=== PATIENT | female | born 1985 | race Caucasian/White ===

== ENCOUNTER 2017-04-11 14:21 | Emergency (ER) | payer MEDICAID ==
[2017-04-11 14:36] VITALS: BP 125/74
--- NOTE | 2017-04-11 20:43 | UC ---
Rey Vides Thomas, scribed for Austin Boo MD on 04/11/17 at 1556 . General HPI - HPI Summary HPI Summary: The patient is a 32 year old female presenting to Urgent Care complaining of cough for the last week. She says it feels like someone is stepping on my chest. Patient additionally complains of right ear clogging, dysuria, urinary urgency, and urinary frequency. She also complains of tongue soreness with bumps on her tongue. Patient denies sore throat. - History of Current Complaint Chief Complaint: UCRespiratory Stated Complaint: COUGH, EAR ACHE ,AND BURNING URINATION Time Seen by Provider: 04/11/17 15:38 Hx Obtained From: Patient Hx Last Menstrual Period: 04/04/17 Onset/Duration: Lasting Weeks - 1, Still Present Timing: Constant Current Severity: Moderate Pain Location at: Tongue Aggravating: None Alleviating: None Associated Signs & Symptoms: Positive: Other - Cough, right ear clogging, dysuria, urinary urgency, urinary frequency, tongue soreness; NEGATIVE: sore throat - Allergy/Home Medications Allergies/Adverse Reactions: Allergies Allergy/AdvReac Type Severity Reaction Status Date / Time Pineapple Allergy Anaphylatic Verified 04/11/17 14:37 Shock Scopolamine Allergy Blurred Verified 04/11/17 14:37 Vision [place] Allergy Anaphylatic Verified 04/11/17 14:37 Shock Tree Nuts Allergy Anaphylatic Verified 04/11/17 14:37 Shock peppers Allergy Anaphylatic Uncoded 04/11/17 14:37 Shock Home Medications: Home Medications Diphenhydramine HCl [Benadryl Allergy] 04/11/17 [History] LevoCETirizine TAB (NF) [Xyzal TAB (NF)] 04/11/17 [History] PMH/Surg Hx/FS Hx/Imm Hx Previously Healthy: No - Gallbladder disease (with cholecystectomy), seasonal allergies - Surgical History Surgical History: None Surgery Procedure, Year, and Place: gallbladder- 03/28/17. tonsillectomy as a child - Family History Known Family History: Positive: Other - Patient denies relevant FHx - Social History Occupation: Employed Full-time Alcohol Use: None Substance Use Type: None Smoking Status (MU): Never Smoked Tobacco - Immunization History Most Recent Influenza Vaccination: unknown Review of Systems ENT: Other - Right ear clogging, tongue soreness Respiratory: Cough Genitourinary: Dysuria, Frequency, Urgency Is Patient Immunocompromised?: No All Other Systems Reviewed And Are Negative: Yes Physical Exam Triage Information Reviewed: Yes Vital Signs: Initial Vital Signs Temp 99.1 F 04/11/17 14:31 Pulse 98 04/11/17 14:31 Resp 14 04/11/17 14:31 BP 125/74 04/11/17 14:31 Pulse Ox 100 04/11/17 14:31 Vital Signs Reviewed: Yes - Additional Comments VITAL SIGNS: Reviewed. GENERAL: Patient is a well-developed and nourished female who is lying comfortable in the stretcher. Patient is not in any acute respiratory distress. HEAD AND FACE: Normocephalic EYES: PERRLA, EOMI x 2. EARS: Hearing grossly intact. The right TM is erythematous. MOUTH: Oropharynx within normal limits. She has canker sores. NECK: Supple, trachea is midline, no adenopathy, no JVD, no carotid bruit. CHEST: Symmetric, no tenderness at palpation LUNGS: Coarse breath sounds. CVS: Regular rate and rhythm, S1 and S2 present, no murmurs or gallops appreciated. ABDOMEN: Soft, non-tender. Bowel sounds are normal. No abdominal abnormal pulsations. EXTREMITIES: Full ROM in all major joints, no edema, no cyanosis or clubbing. NEURO: Alert and oriented x 3. No acute neurological deficits. Speech is normal and follows commands. SKIN: Dry and warm Course/Dx - Course Course Of Treatment: The patient is a 32 year old female presenting to Urgent Care complaining of cough for the last week. She says it feels like someone is stepping on my chest. Patient additionally complains of right ear clogging, dysuria, urinary urgency, and urinary frequency. She also complains of tongue soreness with bumps on her tongue. Patient denies sore throat. The right TM is erythematous. She has canker sores. She has coarse breath sounds. Urinalysis shows 1+ blood and 1+ leukocyte esterase. Urine culture was ordered. The patient is diagnosed with right otitis media and UTI. The patient will be discharged home and instructed to follow up with primary care. The patient is prescribed Xylocaine 2% viscous for mouth sores and Bactrim for UTI. - Differential Dx - Multi-Symptom Differential Diagnoses: Urinary Tract Infection, Other - URI, OM, Flu Provider Diagnoses: Right otitis media, UTI Discharge - Discharge Plan Condition: Stable Disposition: HOME Prescriptions: Lidocaine 2% VISCOUS* [Xylocaine 2% Viscous*] 15 ml SWISH SPIT Q4H PRN #1 btl PRN Reason: Pain Sulfamethox/Trimethoprim DS* [Bactrim DS 800/160 TAB*] 1 tab PO BID #20 tab Patient Education Materials: Urinary Tract Infection in Women (ED), Otitis Media (ED) Referrals: [facility] [Outside] - 3 Days Additional Instructions: Follow up with your primary care physician in 3 days. Return to urgent care for any new or worsening symptoms. The documentation as recorded by the Rey mcgrath Thomas accurately reflects the service I personally performed and the decisions made by Rajeev turner Walter, MD.
--- NOTE | 2017-04-15 07:51 | UC ---
- Progress Note Progress Note: NOTIFY PT THAT HER INFECTION IS RESISTANT TO BACTRIM STOP CURRENT ANTIBIOTIC E -RXED FEKEX 500MG BID X 7 DAYS Course/Dx - Course Course Of Treatment: The patient is a 32 year old female presenting to Urgent Care complaining of cough for the last week. She says it feels like someone is stepping on my chest. Patient additionally complains of right ear clogging, dysuria, urinary urgency, and urinary frequency. She also complains of tongue soreness with bumps on her tongue. Patient denies sore throat. The right TM is erythematous. She has canker sores. She has coarse breath sounds. Urinalysis shows 1+ blood and 1+ leukocyte esterase. Urine culture was ordered. The patient is diagnosed with right otitis media and UTI. The patient will be discharged home and instructed to follow up with primary care. The patient is prescribed Xylocaine 2% viscous for mouth sores and Bactrim for UTI.
== END 2017-04-11 16:00 | disposition home or self-care (01) ==
LOC: UCEAST 14:21
DX: N39.0 Urinary tract infection, site not specified (principal); H66.91 Otitis media, unspecified, right ear; R05 Cough; K13.70 Unspecified lesions of oral mucosa; Z91.018 Allergy to other foods
CPT/HCPCS: 81003; 87077; 87086; 87186; 99202; G0463

== ENCOUNTER 2017-04-21 16:19 | Emergency (ER) | payer MEDICAID ==
[2017-04-21 16:35] VITALS: BP 136/63
--- NOTE | 2017-04-21 16:54 | UC ---
Respiratory Complaint HPI - HPI Summary HPI Summary: Pt presents with multiple complaints. 1) Cough. She tells me that over the last 3 days she has had a dry cough and gets in "coughing fits" frequently. 2) Chronic right ear pain. She recently moved to [place] from [place]. When she was in [place] she saw many ENT doctors for this right ear pain and tells me that none were ever able to "figure it out". She has had multiple scans and tests. She has not seen an ENT doctor since moving to [place]. 3) Hemorrhoids. She recently had her gallbladder removed and had been taking colace to soften her stools post surgery. She hasn't taken any the last week or two and has developed a hemorrhoid. No bleeding, but is very painful. She denies dizziness, headache, fever, chills, body aches, SOB, chest pain, abdominal pain, N/V/D/C, rectal bleeding, black stools, or dysuria. - History of Current Complaint Chief Complaint: UCGeneralIllness Stated Complaint: RESP COMPLAINT Hx Obtained From: Patient Hx Last Menstrual Period: 04/05/17 Onset/Duration: Gradual Onset Timing: Constant Severity Initially: Moderate Severity Currently: Moderate Pain Intensity: 9 Pain Scale Used: 0-10 Numeric - Allergies/Home Medications Allergies/Adverse Reactions: Allergies Allergy/AdvReac Type Severity Reaction Status Date / Time Pineapple Allergy Anaphylatic Verified 04/21/17 16:35 Shock Scopolamine Allergy Blurred Verified 04/21/17 16:35 Vision [place] Allergy Anaphylatic Verified 04/21/17 16:35 Shock Tree Nuts Allergy Anaphylatic Verified 04/21/17 16:35 Shock peppers Allergy Anaphylatic Uncoded 04/21/17 16:35 Shock PMH/Surg Hx/FS Hx/Imm Hx Previously Healthy: Yes - Surgical History Surgical History: None Surgery Procedure, Year, and Place: gallbladder- 03/28/17. tonsillectomy as a child - Family History Known Family History: Positive: Other - Patient denies relevant FHx - Social History Occupation: Employed Full-time Lives: With Family Alcohol Use: None Substance Use Type: None Smoking Status (MU): Never Smoked Tobacco - Immunization History Most Recent Influenza Vaccination: unknown Review of Systems Constitutional: Negative Skin: Negative Eyes: Negative ENT: Ear Ache Respiratory: Cough Cardiovascular: Negative Gastrointestinal: Negative Genitourinary: Negative Psychological: Negative All Other Systems Reviewed And Are Negative: Yes - Comments Additional Review of Systems Comments: Rectal pain Physical Exam Triage Information Reviewed: Yes Appearance: Well-Appearing, No Pain Distress, Well-Nourished Vital Signs: Initial Vital Signs Temp 97.6 F 04/21/17 16:30 Pulse 88 04/21/17 16:30 Resp 18 04/21/17 16:30 BP 136/63 04/21/17 16:30 Vital Signs Reviewed: Yes Eyes: Positive: Conjunctiva Clear. Negative: Conjunctiva Inflamed, Discharge ENT: Positive: Hearing grossly normal, Pharynx normal, TMs normal, Uvula midline. Negative: Pharyngeal erythema, Nasal congestion, Nasal drainage, TM bulging, TM dull, TM red, Tonsillar swelling, Tonsillar exudate, Muffled voice, Hoarse voice, Sinus tenderness Neck: Positive: Supple, Nontender, No Lymphadenopathy Respiratory: Positive: Chest non-tender, Lungs clear, Normal breath sounds, No respiratory distress, No accessory muscle use Cardiovascular: Positive: RRR, No Murmur, Pulses Normal Abdomen Description: Positive: Nontender, No Organomegaly, Soft. Negative: CVA Tenderness (R), CVA Tenderness (L), Distended, Guarding, McBurney's Point Tenderness Bowel Sounds: Positive: Present Neurological: Positive: Alert Psychological: Positive: Age Appropriate Behavior Skin: Negative: rashes - Additional Comments She declined a rectal exam. Respiratory Course/Dx - Course Course Of Treatment: Hemorrhoids - she declined an exam today. Will treat with Anusol and refer to gen surg. Right ear pain - chronic. Exam is benign. Will refer to ENT locally and try Flonase nasal spray as she has tried multiple antihistamines and allergy medications without relief. Cough - CXR is negative. Rx for tessalon and guaifenesin with codeine...reassurance that this is likely viral and will gradually improve. - Differential Dx/Diagnosis Differential Diagnosis/HQI/PQRI: Asthma, Bronchitis, Influenza, Laryngitis, Lower Resp Infection, Sinusitis Provider Diagnoses: Bronchitis. Hemorrhoids. Chronic right ear pain. Allergic rhinitis Discharge - Discharge Plan Condition: Stable Disposition: HOME Prescriptions: Benzonatate CAP* [Tessalon 100 MG CAP*] 100 mg PO TID PRN #21 cap PRN Reason: Cough Fluticasone NASAL SPRAY 50MCG* [Flonase NASAL SPRAY 50MCG*] 2 spray RIGHT NARE DAILY #1 btl Guaifenesin-Codeine [Guaiatussin AC 100-10 mg/5Ml] 5 ml PO BEDTIME PRN #20 ml MDD 5mL PRN Reason: Cough Hydrocortisone SUPP* [Anusol HC Supp*] 25 mg SC BID PRN #20 supp PRN Reason: Pain Norethindrone/Eth Est NF [Junel (NF)] 1 tab PO DAILY #1 baldo Patient Education Materials: Hemorrhoids (ED), Acute Bronchitis (ED) Referrals: No Primary Care Phys,NOPCP [Primary Care Provider] - Cb Escobar MD [Medical Doctor] - As Soon As Possible Roland Finch MD [Medical Doctor] - As Soon As Possible Additional Instructions: If you develop a fever, shortness of breath, chest pain, new or worsening symptoms - please call your PCP or go to the ED. Your blood pressure was mildly elevated at todays visit. Please see your primary provider within 4 weeks for recheck and re-evaluation. 1) Please call ENT at the number below to schedule a follow up appointment regarding your ongoing right ear pain. 2) Please call Dr. Escobar - General Surgery - at the number below to schedule a follow up appointment regarding your hemorrhoids.
--- NOTE | 2017-04-21 17:38 | RAD ---
INDICATION: Shortness of breath, chest pain, cough 2 weeks duration. Denies fever. COMPARISON: No relevant prior exams available on the [facility] PACS for comparison. TECHNIQUE: Dual energy PA and routine lateral views of the chest were obtained. REPORT: Clear lungs and pleural spaces. Negative for pneumothorax. The heart, pulmonary vasculature, and mediastinal contours are unremarkable. Unremarkable osseous structures and soft tissue contours. IMPRESSION: No evidence for pneumonia. Negative exam.
== END 2017-04-21 18:10 | disposition home or self-care (01) ==
LOC: UCEAST 16:19
DX: J40 Bronchitis, not specified as acute or chronic (principal); K64.9 Unspecified hemorrhoids; H92.01 Otalgia, right ear; G89.29 Other chronic pain; J30.9 Allergic rhinitis, unspecified; Z88.8 Allergy status to other drugs, medicaments and biological substances
CPT/HCPCS: 71046; 99212; G0463

== ENCOUNTER 2017-12-19 18:54 | Emergency (ER) | payer OTHER ==
--- OUTSIDE RECORDS SUMMARY | 2017-12-19 19:04 | XMS REPORT ---
:1985 External Reference #:[id number] Author Organization [facility] Address [address] [place] [address] Phone [phone] Care Team Providers Name Role Phone Kenneth Mahmood M.D. Care Team Information Clinical Case Manager Unavailable Payers Type Date Identification Numbers Payment Provider Subscriber Commercial Policy Number: [id number] [facility] Crystal Key PayID: [id number] [address] [place] [address] Medigap Part B Policy Number: [id number] Medicaid [place] PayID: [id number] [address] [place] [address] Problems Description No Information Family History Date Family Member(s) Problem(s) Comments Father Diabetes Mother Fibromyalgia Mother Heart Arthmia First Sister A&W Paternal Grandfather A&W Paternal Grandmother due to Lung Cancer () Maternal Grandfather due to Heart Disease () Maternal Grandmother due to Ovarian Cancer () Social History Type Date Description Comments Education College Marital Status Single Lives With Mother Diet Healthy, Well Balanced 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 Cigarette Use Never Smoked Cigarettes ETOH Use Denies alcohol use Recreational Drug Use Denies Drug Use Smoking Patient has never smoked Daily Caffeine Consumes on average 1 cup of tea per day Daily Caffeine Consumes on average 1 soda per day Exercise Type/Frequency Exercises regularly Seat Belt/Car Seat Always uses seat belt Currently Active Patient is currently sexually active Contraceptive Methods 06/25/2017 Current methods include levonorgestrel Kyleena IUD STD's No STD History Allergies, Adverse Reactions, Alerts Date Description Reaction Status Severity Comments 06/10/2017 Scopolamine active Medications Medication Date Status Form Strength Qnty SIG Indications Ordering Provider Nitrofurantoin Active Capsules 100mg 14caps take Phaelon Macrocrystal 018 one tab MD Paulina by mouth twice a day for 7 days Doxycycline Active Capsules 100mg 70caps take Phaelon Hyclate 018 one megan Gallardo MD by mouth daily for 10 weeks Kyleena Active IUD 19.5mg Phaelon 018 MD Paulina Vitamin C Active Unknown 000 Xyzal Active Unknown 000 Acyclovir Active Unknown 000 Fluconazole Hx Tablets 150mg 1tabs take Phaelon 018 - one megan Gallardo MD by 018 mouth now Keflex Hx Capsules 250mg 28caps take Joanne 018 - one tab Angeli, every 6 CNM 018 hours for 7 days Microgestin Hx Tablets 1.5-30mg-m 1 by Unknown 1.5/30 000 - cg mouth every 018 day Medications Administered in Office Medication Date Status Form Strength Qnty SIG Indications Ordering Provider PT SCRN Tbco Administered Injection Phaelon Id as Non User 018 MD Paulina PT SCRN Tbco Administered Injection Phaelon Id as Non User 018 MD Paulina PT SCRN Tbco Administered Injection Joanne Id as Non User 018 LINDEN Suh PT SCRN Tbco Administered Injection Rose Id as Non User 018 DIPESH Mcguire Vital Signs Date Vital Result Comment 12/08/2017 BP Systolic 108 mmHg BP Diastolic 72 mmHg Height 63 inches 5'3" Weight 199.00 lb BMI (Body Mass Index) 35.2 kg/m2 Last Menstrual Period [id number] 0 08/05/2017 BP Systolic 116 mmHg BP Diastolic 76 mmHg Height 63 inches 5'3" Weight 196.00 lb BMI (Body Mass Index) 34.7 kg/m2 0 07/29/2017 BP Systolic 108 mmHg BP Diastolic 64 mmHg Height 63 inches 5'3" Weight 195.00 lb BMI (Body Mass Index) 34.5 kg/m2 Last Menstrual Period 9714613 0 Parity 0 06/25/2017 BP Systolic 118 mmHg BP Diastolic 78 mmHg Height 63 inches 5'3" Weight 203.00 lb BMI (Body Mass Index) 36.0 kg/m2 Last Menstrual Period [id number] 0 06/10/2017 BP Systolic 108 mmHg BP Diastolic 64 mmHg Height 63 inches 5'3" Weight 208.00 lb BMI (Body Mass Index) 36.8 kg/m2 Last Menstrual Period 0913684 0 Parity 0 Results Test Date Test Result H/L Range Note Laboratory test 07/29/2017 Culture Genital & SEE RESULT BELOW 1 finding Sensitivity Laboratory test 06/10/2017 Cytology SEE RESULT BELOW 2 finding GC/Chlamydia Dna 06/10/2017 Chlamydia Negative Negative Probe trachomatis Rna Neisseria gonorrhoeae (GC) Rna Negative Negative 1 SEE RESULT BELOW Name: CRYSTAL KEY : [address]: Joanne RAYMOND Acct: [id number] Unit: [id number] AGE: 32 Location: [facility] Re07/29/17 SEX: F Status: REG REF SPEC: [id number] FUENTES: 07/29/17-[address]: Joanne RAYMOND REQ: [id number] RECD: 07/29/172225 STATUS: COMP _ SOURCE: [facility]: ORDERED: Genital Culture Procedure Result Reported Site Genital Culture Final 07/31/17- 1027 ML Organism 1 NORMAL KAYCE Quantity 3+ Routine genital cultures do not include selective agar for Neisseria gonorrhoeae. Molecular testing offers better test sensitivity and therefore is the preferred test methodology for identifying this organism. * ML - Main Lab . END OF REPORT DEPARTMENT OF PATHOLOGY, [address] [place] [address] Pola William M.D. Director [facility] # [id number] 2 SEE RESULT BELOW Name: CRYSTAL KEY : [address]: Rose Mcguire CM Acct: [id number] Unit: [id number] AGE: 32 Location: [facility] Re06/10/17 SEX: F Status: REG REF SPEC: [id number] FUENTES: 06/10/17-[address]: Rose Mcguire CM REQ: [id number] RECD: 06/10/17 STATUS: SOUT _ ORDERED: TP IMAGE ANAL, HPV/Thin Prep COMMENTS: [id number] Negative for Intraepithelial lesion or Malignancy A. Ectocervical/Endocervical Specimen Adequacy: Satisfactory of evaluation Transformation zone component not identified Patient Information: HPV: High risk HPV RNA testing regardless of pap results. Actual Specimen Date: 06/10/17 Last Menstrual Date: 05/25/17 Spec Date if unknown: unknown ?: N Post Menopausal?: N Hysterectomy?: N Previous Abnormal Pap Smears?:N Date Time Test Result Flag (u) Normal Range 06/10/17 1039 @ HPV RNA Negative Negative @ @ The high-risk HPV types detected by the assay include: 16, @ 18, 31, 33, 35, 39, 45, 51, 52, 56, 58, 59, 66, and 68. Signed (signature on file) Ibrahima BrewsterTITA(ASCP) 06/11 1225 This Pap test was evaluated with the assistance of the Rapid Mobilep Test Imaging System. Due to cytologic findings at the cnc applications engineer microscope, comprehensive manual rescreening by a Commercial Housekeeper may be required. The Pap Smear is a screening test designed to aid in the detection of premalignant and malignant conditions of the uterine cervix. It is not a diagnostic procedure and should not be used as the sole means of detecting cervical cancer. Both false- positive and false- negative reports do occur. Depending on your risk status, a Pap smear should be obtained and evaluated every 1-3 years. END OF REPORT * ML=Testing performed at Main Lab DEPARTMENT OF PATHOLOGY, [address] [place] [address] Pola William M.D. Director [facility] # [id number] Procedures Date CPT Code Description Status 06/25/2017 84955 Cervical Dilator Inserted Completed 06/25/2017 56064 Insert Intrauterine Device Completed Encounters Type Date Location Provider CPT E/M Dx Office Visit 12/08/2017 1:00p [place] [address] L02.225 N30.00 Office Visit 08/05/2017 11:15a [place] [address] Z30.431 L73.2 Office Visit 07/29/2017 10:00a [facility] Joanne Suh CNM 59398 N76.89 Office Visit 06/10/2017 9:40a [place] [address] Z01.419 Z12.4 Z30.9 Z11.3 Plan of Care No Information Available
[2017-12-19 19:18] VITALS: BP 156/87
--- NOTE | 2017-12-19 20:38 | UC ---
Skin Complaint HPI - HPI Summary HPI Summary: 32 y/o female presents to the urgent care c/o red rash w/ small blisters or bites on different parts of her body that itch a lot for the past 10 days. Pt reports she had a similar rash last year and it resolved after applying alcohol. However this time they are not resolving. small papules have a clear discharge at the beginning and then become red. She has been scratching a lot which makes it painful. pain is 3/10. Pt is allergic to different environmental allergens. But can't recall eating something different, wearing different body lotions or detergents. She denies bed bugs or sleeping at a different place, denies fever, SOB, throat tightening, chest pain, abdominal pain, N/V/D. - History of Current Complaint Chief Complaint: UCRash Time Seen by Provider: 12/19/17 20:20 Stated Complaint: SPOTS RASHES ALL OVER Hx Obtained From: Patient Hx Last Menstrual Period: 2 wks ago ?: No Onset/Duration: Sudden Onset, Lasting Days - 10 days, Still Present, Worse Since - 2 days Skin Exposure Onset/Duration: Days Ago - 10 days Timing: Constant Onset Severity: Mild Current Severity: Moderate Pain Intensity: 3 - after itching Pain Scale Used: 0-10 Numeric Location: Generalized - back, upper chest, B/L arms and legs Character: Pruritus, Redness - papules Aggravating Factor(s): Touch Alleviating Factor(s): OTC Meds Associated Signs & Symptoms: Positive: Rash, Drainage - clear. Negative: Difficulty Breathing, Fever, Chills, Hoarseness, Throat Tightening, Tenderness Related History: Possible Reaction to: Environmental Exposure - Allergy/Home Medications Allergies/Adverse Reactions: Allergies Allergy/AdvReac Type Severity Reaction Status Date / Time pineapple Allergy Anaphylatic Verified 12/19/17 19:20 Shock scopolamine Allergy Blurred Verified 12/19/17 19:20 Vision strawberry Allergy Anaphylatic Verified 12/19/17 19:20 Shock Tree Nuts Allergy Anaphylatic Verified 12/19/17 19:20 Shock peppers Allergy Anaphylatic Uncoded 12/19/17 19:20 Shock Review of Systems Constitutional: Negative Skin: Rash - scattered red rash in upper chest, back, B/L arms, B/L legs, Other - itchiness Eyes: Negative ENT: Negative Respiratory: Negative Cardiovascular: Negative Gastrointestinal: Negative Genitourinary: Negative Motor: Negative Neurovascular: Negative Musculoskeletal: Negative Neurological: Negative Psychological: Negative Is Patient Immunocompromised?: No All Other Systems Reviewed And Are Negative: Yes PMH/Surg Hx/FS Hx/Imm Hx Previously Healthy: Yes - Pt denies PMHX - Surgical History Surgical History: None Surgery Procedure, Year, and Place: Gallbladder- 03/28/17. Tonsillectomy as a child - Family History Known Family History: Positive: Diabetes - Social History Occupation: Employed Full-time Lives: With Family Alcohol Use: None Substance Use Type: None Smoking Status (MU): Never Smoked Tobacco - Immunization History Most Recent Influenza Vaccination: unknown Physical Exam - Summary Physical Exam Summary: Vital Signs Reviewed: Yes General: well developed, well nourished female sitting in the examining table w/ o any apparent distress. Eyes: Positive: Conjunctiva Clear - PERRLA, EOMI ENT: Positive: Normal ENT inspection, Hearing grossly normal, Pharynx normal, TMs normal Neck: Positive: Supple, Nontender, No Lymphadenopathy Respiratory: Positive: Chest nontender, Lungs clear, Normal breath sounds Cardiovascular: Positive: RRR, No Murmur, Pulses Normal Abdomen Description: Positive: Nontender, No Organomegaly, Soft. Negative: CVA Tenderness (R), CVA Tenderness (L) Bowel Sounds: Positive: Present Musculoskeletal: Positive: Strength Intact, ROM Intact, No Edema Neurological Exam: Normal Psychological Exam: Normal Skin: Positive: rashes - upper chest, back, B/L arms and leg w/ scattered erythematous discrete blisters and papules some w/ signs of excoriation, and some w/ clear drainage observed, non tender to palpation. Triage Information Reviewed: Yes Vital Signs: Initial Vital Signs Temp 98.2 F 12/19/17 19:14 Pulse 89 12/19/17 19:14 Resp 18 12/19/17 19:14 BP 156/87 12/19/17 19:14 Pulse Ox 99 12/19/17 19:14 Course/Dx - Course Course Of Treatment: 32 y/o female presents to the urgent care c/o red rash w/ small blisters or bites on different parts of her body that itch a lot for the past 10 days. Pt reports she had a similar rash last year and it resolved after applying alcohol. However this time they are not resolving. small papules have a clear discharge at the beginning and then become red. She has been scratching a lot which makes it painful. pain is 3/10. Pt is allergic to different environmental allergens. But can't recall eating something different, wearing different body lotions or detergents. She denies bed bugs or sleeping at a different place, denies fever, SOB, throat tightening, chest pain, abdominal pain, N/V/D.Hx obtained. Pt w/ an erythematous papules in upper chest, back, B/ L arms and B/L legs w/ signs of excoriation. Also w/ Scaling eruption on the posterior scalp on examination. Pt probably w/ an allergic reaction and Seborrheic dermatitis of scalp. Pt RX Prednisone PO taper dose, Caladryl topical lotion, triamcinolone topical cream to alleviate symptoms. First doese of prednisone PO given at the clinic tonight. Pt advised if not improvement of symptoms to f/u w/ Electronic Equipment Maint Tech Dr Garibay for further evaluation and treatment. Pt's BP is elevated today advised to decrease salt in diet, monitor BP and f/u with PCP for further management. D/C instructions explained. Pt understood and agreed w/ plan of care. - Differential Diagnoses - Skin Complaint Differential Diagnoses: Contact Dermatitis, Eczema, Scabies, Tinea, Urticaria, Other - bed bugs, insect bites, - Diagnoses Provider Diagnoses: 1- Acute rash. 2- Scalp Seborrheic dermatitis. 3- elevated BP w/o Hx of HTN Discharge - Sign-Out/Discharge Documenting (check all that apply): Patient Departure - D/c home All imaging exams completed and their final reports reviewed: No Studies - Discharge Plan Condition: Stable Disposition: HOME Prescriptions: Calamine/Pramoxine LOTION* [Caladryl LOTION*] 1 applic .SEE ORDER BID #1 btl predniSONE TAB* [Deltasone 20 MG TAB*] 20 mg PO DAILY #8 tab Triamcinolone 0.1% OINT(NF) [Kenalog 0.1% OINT(NF)] 1 applic .SEE ORDER BID #1 applic Patient Education Materials: Acute Rash (ED), Low-Sodium Diet (ED), Seborrheic Dermatitis (DC) Referrals: Dallin Martines DO [Primary Care Provider] - 3 Days Janessa Garibay [Medical Doctor] - 3 Days Additional Instructions: 1-Please Start taking Prednisone PO taper dose starting tomorrow. first loading dose given today at the clinic. 2- Apply triamcinolone topical cream as directed on all affected areas and your scalp. Avoid exposure to the sun. A/ternate w/ Calamide lotion as directed. 3-If symptoms do not improve or worsen please f/u with your PCP or Electronic Equipment M[employer] Tech Dr Garibay in 2-3 days for further evaluation and treatment. 4-Your BP is elevated today. please decrease salt in your diet, monitor BP and if it continues to be elevated please f/u with your PCP for further management - Billing Disposition and Condition Condition: STABLE Disposition: Home
[2017-12-19] MEDS ORDERED: predniSONE TAB* 20 MG PO ONE (20:52)
== END 2017-12-19 21:05 | disposition home or self-care (01) ==
LOC: UCEAST 18:54
DX: L21.8 Other seborrheic dermatitis (principal); R21 Rash and other nonspecific skin eruption; R03.0 Elevated blood-pressure reading, without diagnosis of hypertension; Z91.09 Other allergy status, other than to drugs and biological substances; Z87.2 Personal history of diseases of the skin and subcutaneous tissue; Z91.018 Allergy to other foods; Z88.8 Allergy status to other drugs, medicaments and biological substances
CPT/HCPCS: 99212; G0463; J7512

== ENCOUNTER 2018-06-18 12:48 | Emergency (ER) | payer OTHER ==
[2018-06-18 13:17] VITALS: BP 154/81
--- NOTE | 2018-06-18 13:17 | UC ---
Throat Pain/Nasal Seven HPI - History of Current Complaint Stated Complaint: SORE THROAT, EAR PAIN Time Seen by Provider: 06/18/18 13:16 Hx Last Menstrual Period: 2 wks ago - Allergies/Home Medications Allergies/Adverse Reactions: Allergies Allergy/AdvReac Type Severity Reaction Status Date / Time pineapple Allergy Anaphylatic Verified 12/19/17 19:20 Shock scopolamine Allergy Blurred Verified 12/19/17 19:20 Vision strawberry Allergy Anaphylatic Verified 12/19/17 19:20 Shock Tree Nuts Allergy Anaphylatic Verified 12/19/17 19:20 Shock peppers Allergy Anaphylatic Uncoded 12/19/17 19:20 Shock PMH/Surg Hx/FS Hx/Imm Hx - Surgical History Surgical History: None Surgery Procedure, Year, and Place: Gallbladder- 03/28/17. Tonsillectomy as a child - Family History Known Family History: Positive: Diabetes, Other - Patient denies relevant FHx - Social History Alcohol Use: None Substance Use Type: None Smoking Status (MU): Never Smoked Tobacco - Immunization History Most Recent Influenza Vaccination: unknown Discharge - Discharge Plan Referrals: No Primary Care Phys,NOPCP [Primary Care Provider] -
--- NOTE | 2018-06-18 13:38 | UC ---
Ear Complaint HPI - HPI Summary HPI Summary: 2 DAYS OF RIGHT EAR PAIN. FEELS CRACKLY. HAS MILD COUGH AND ST WELL SUBJECTIVE FEVER. TODAY DEVELOPED A COLD SORE RIGHT UPPER LIP. HAS CHRONIC ISSUES WITH HER RIGHT EAR AND SEES DR. SKINNER. - History of Current Complaint Chief Complaint: UCRespiratory Stated Complaint: SORE THROAT, EAR PAIN Time Seen by Provider: 06/18/18 13:16 Hx Obtained From: Patient Hx Last Menstrual Period: 05/28/18 Onset/Duration: Gradual Onset, Lasting Days, Still Present Severity Initially: Moderate Severity Currently: Moderate Pain Intensity: 6 Pain Scale Used: 0-10 Numeric Aggravating Factors: Nothing Alleviating Factors: Nothing Associated Signs/Symptoms: Positive: Hearing Loss, URI Symptoms. Negative: Discharge - Allergies/Home Medications Allergies/Adverse Reactions: Allergies Allergy/AdvReac Type Severity Reaction Status Date / Time pineapple Allergy Anaphylatic Verified 06/18/18 13:17 Shock scopolamine Allergy Blurred Verified 06/18/18 13:17 Vision strawberry Allergy Anaphylatic Verified 06/18/18 13:17 Shock Tree Nuts Allergy Anaphylatic Verified 06/18/18 13:17 Shock peppers Allergy Anaphylatic Uncoded 06/18/18 13:17 Shock PMH/Surg Hx/FS Hx/Imm Hx Previously Healthy: Yes - Surgical History Surgical History: None Surgery Procedure, Year, and Place: Gallbladder- 03/28/17. Tonsillectomy as a child - Family History Known Family History: Positive: Diabetes, Other - Patient denies relevant FHx - Social History Alcohol Use: None Substance Use Type: None Smoking Status (MU): Never Smoked Tobacco - Immunization History Most Recent Influenza Vaccination: unknown Review of Systems All Other Systems Reviewed And Are Negative: Yes Constitutional: Positive: Fever Skin: Positive: Other - COLD SORE ENT: Positive: Sore Throat, Ear Ache Respiratory: Positive: Cough Cardiovascular: Positive: Negative Gastrointestinal: Positive: Negative Physical Exam Triage Information Reviewed: Yes Appearance: Well-Appearing, No Pain Distress, Well-Nourished Vital Signs: Initial Vital Signs Temp 98.6 F 06/18/18 13:13 Pulse 74 06/18/18 13:13 Resp 18 06/18/18 13:13 BP 154/81 06/18/18 13:13 Pulse Ox 100 06/18/18 13:13 Vital Signs Reviewed: Yes Eyes: Positive: Conjunctiva Clear ENT: Positive: Hearing grossly normal, Pharynx normal, Other - LEFT TM NORMAL. RIGHT TM RETRACTED WITH SMALL AMOUNT FLUID Neck: Positive: Supple, Nontender, No Lymphadenopathy Respiratory Exam: Normal Cardiovascular Exam: Normal Abdomen Description: Positive: Soft Musculoskeletal: Positive: No Edema Neurological: Positive: Alert Psychological: Positive: Age Appropriate Behavior Skin: Negative: Rashes Ear Complaint Course/Dx - Differential Dx/Diagnosis Provider Diagnosis: Herpes labialis, Right serous otitis media Discharge - Sign-Out/Discharge Documenting (check all that apply): Patient Departure All imaging exams completed and their final reports reviewed: No Studies - Discharge Plan Condition: Stable Disposition: HOME Prescriptions: Valacyclovir HCl [Valacyclovir] 2 gm PO BID #4 tab Patient Education Materials: Oral Herpes Simplex Virus Infections (ED), Serous Otitis Media (ED) Forms: *Work Release Referrals: Elias Skinner MD [Medical Doctor] - 1 Week - Billing Disposition and Condition Condition: STABLE Disposition: Home
== END 2018-06-18 13:40 | disposition home or self-care (01) ==
LOC: UCEAST 12:48
DX: H65.91 Unspecified nonsuppurative otitis media, right ear (principal); B00.1 Herpesviral vesicular dermatitis; Z91.018 Allergy to other foods
CPT/HCPCS: 99212; G0463

== ENCOUNTER 2018-09-04 18:09 | Emergency (ER) | payer OTHER ==
[2018-09-04 18:19] VITALS: BP 132/76
--- NOTE | 2018-09-04 18:30 | UC ---
Lower Extremity/Ankle HPI - HPI Summary HPI Summary: 33 yo female with left ankle pain and swelling x 2 weeks no recalled trauma is walking with a limp remote hx of fx x 2 - History of Current Complaint Chief Complaint: UCLowerExtremity Stated Complaint: ANKLE AND FOOT SWELLING Time Seen by Provider: 09/04/18 18:13 Hx Last Menstrual Period: 3 weeks ago - Onset/Duration: Gradual Onset Severity Initially: Mild Severity Currently: Severe Pain Intensity: 8 Pain Scale Used: 0-10 Numeric Aggravating Factor(s): Standing, Ambulation Alleviating Factor(s): Rest, Elevation Able to Bear Weight: Yes Feet (Multiple View): 1 - tender /swollen - Allergies/Home Medications Allergies/Adverse Reactions: Allergies Allergy/AdvReac Type Severity Reaction Status Date / Time pineapple Allergy Anaphylatic Verified 09/04/18 18:19 Shock strawberry Allergy Anaphylatic Verified 09/04/18 18:19 Shock Tree Nuts Allergy Anaphylatic Verified 09/04/18 18:19 Shock scopolamine AdvReac Blurred Verified 09/04/18 18:19 Vision peppers Allergy Anaphylatic Uncoded 09/04/18 18:19 Shock Home Medications: Home Medications Levonorgestrel (Iud) [Kyleena IUD] 17.5 mcg IU DAILY 09/04/18 [History Confirmed 09/04/18] Minocycline HCl [Minocycline Hydrochloride] 100 mg PO BID 09/04/18 [History Confirmed 09/04/18] Valacyclovir HCl [Valacyclovir] 2 gm PO BID PRN 09/04/18 [History Confirmed ] PMH/Surg Hx/FS Hx/Imm Hx Previously Healthy: Yes - Surgical History Surgical History: Yes Surgery Procedure, Year, and Place: Gallbladder- 03/28/17. Tonsillectomy as a child - Family History Known Family History: Positive: Diabetes, Other - Patient denies relevant FHx Negative: Cardiac Disease, Hypertension - Social History Alcohol Use: None Substance Use Type: None Smoking Status (MU): Never Smoked Tobacco - Immunization History Most Recent Influenza Vaccination: unknown Review of Systems All Other Systems Reviewed And Are Negative: Yes Constitutional: Positive: Negative Skin: Positive: Negative Eyes: Positive: Negative ENT: Positive: Negative Respiratory: Positive: Negative Cardiovascular: Positive: Negative Gastrointestinal: Positive: Negative Genitourinary: Positive: Negative Motor: Positive: Negative Neurovascular: Positive: Negative Musculoskeletal: Positive: Arthralgia - right ankle Neurological: Positive: Negative Psychological: Positive: Negative Physical Exam Triage Information Reviewed: Yes Appearance: Well-Appearing, No Pain Distress, Well-Nourished Vital Signs: Initial Vital Signs Temp 99.4 F 09/04/18 18:15 Pulse 92 09/04/18 18:15 Resp 16 09/04/18 18:15 BP 132/76 09/04/18 18:15 Pulse Ox 98 09/04/18 18:15 Vital Signs Reviewed: Yes Eyes: Positive: Conjunctiva Clear ENT: Negative: Hearing grossly normal, Nasal congestion, Nasal drainage, Trismus , Muffled voice, Hoarse voice Dental Exam: Normal Neck: Positive: Supple Respiratory: Positive: Lungs clear, Normal breath sounds, No respiratory distress, No accessory muscle use Cardiovascular: Positive: RRR, No Murmur Musculoskeletal: Positive: Edema @ - Right LM Neurological: Positive: Alert Psychological Exam: Normal Skin Exam: Normal Diagnostics - Radiology No standard instances Radiology Interpretation Completed By: Radiologist - Lat STS, old MM fx, and probable old post talus fx Lower Extremity Course/Dx - Differential Dx/Diagnosis Provider Diagnosis: Pain and swelling of right ankle Discharge - Sign-Out/Discharge Documenting (check all that apply): Patient Departure All imaging exams completed and their final reports reviewed: No - Discharge Plan Condition: Stable Disposition: HOME Patient Education Materials: Ankle Sprain (ED), R.I.C.E. Treatment (ED) Referrals: [facility] [Outside] - As Soon As Possible Additional Instructions: advil or aleve for pain offical XR report pending - Billing Disposition and Condition Condition: STABLE Disposition: Home
--- NOTE | 2018-09-05 08:54 | UC ---
- EKG/XRAY/CT Xray Comments: wet read correct Course/Dx - Diagnoses Provider Diagnoses: Pain and swelling of right ankle Discharge - Sign-Out/Discharge Documenting (check all that apply): Patient Departure All imaging exams completed and their final reports reviewed: Yes - Discharge Plan Condition: Stable Disposition: HOME Patient Education Materials: Ankle Sprain (ED), R.I.C.E. Treatment (ED) Referrals: [facility] [Outside] - As Soon As Possible Additional Instructions: advil or aleve for pain offical XR report pending - Billing Disposition and Condition Condition: STABLE Disposition: Home
== END 2018-09-04 18:57 | disposition home or self-care (01) ==
LOC: UCEAST 18:09
DX: M25.571 Pain in right ankle and joints of right foot (principal); M79.89 Other specified soft tissue disorders; Z91.018 Allergy to other foods; Z88.8 Allergy status to other drugs, medicaments and biological substances
CPT/HCPCS: 99213; G0463

== ENCOUNTER 2018-11-30 12:49 | Emergency (ER) | payer OTHER ==
[2018-11-30 13:11] VITALS: BP 125/72
--- NOTE | 2018-11-30 13:31 | UC ---
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 Pt has seasonal allergies, and is traveling soon. unsure about fevers Pleasant 33 yo female with R ear pain, progressively worse x last few days. unk fever / chills. No rash, but hurts to press or pull on ear. Had ear tube in R ear last year (Dr. Skinner). Recent seasonal allergy sx. No cough /st / sob. No GI issues. No new rash. Takes doxycycline for "cysts." - History of Current Complaint Chief Complaint: UCEar Stated Complaint: RIGHT EAR PAIN Time Seen by Provider: 11/30/18 13:30 Hx Obtained From: Patient Hx Last Menstrual Period: 11/23/18 Pain Intensity: 8 - Allergy/Home Medications Allergies/Adverse Reactions: Allergies Allergy/AdvReac Type Severity Reaction Status Date / Time pineapple Allergy Anaphylatic Verified 11/30/18 13:11 Shock strawberry Allergy Anaphylatic Verified 11/30/18 13:11 Shock Tree Nuts Allergy Anaphylatic Verified 11/30/18 13:11 Shock scopolamine AdvReac Blurred Verified 11/30/18 13:11 Vision peppers Allergy Anaphylatic Uncoded 11/30/18 13:11 Shock Home Medications: Home Medications DOXYcycline CAP(*) [DOXYcycline 100MG CAP(*)] 1 tab PO BID 11/30/18 [History Confirmed 11/30/18] Loratadine [Claritin] 1 tab PO DAILY 11/30/18 [History Confirmed 11/30/18] PMH/Surg Hx/FS Hx/Imm Hx Previously Healthy: Yes - Surgical History Surgical History: Yes Surgery Procedure, Year, and Place: Gallbladder- 03/28/17. Tonsillectomy as a child - Family History Known Family History: Positive: Diabetes, Other - Patient denies relevant FHx Negative: Cardiac Disease, Hypertension - Social History Alcohol Use: None Substance Use Type: None Smoking Status (MU): Never Smoked Tobacco - Immunization History Most Recent Influenza Vaccination: unknown Review of Systems All Other Systems Reviewed And Are Negative: Yes Constitutional: Positive: Negative Skin: Positive: Negative Eyes: Positive: Negative ENT: Positive: Ear Ache, Sinus Congestion Respiratory: Positive: Negative Cardiovascular: Positive: Negative Gastrointestinal: Positive: Negative Genitourinary: Positive: Negative Motor: Positive: Negative Neurovascular: Positive: Negative Musculoskeletal: Positive: Negative Neurological: Positive: Negative Psychological: Positive: Negative Is Patient Immunocompromised?: No Physical Exam Triage Information Reviewed: Yes Appearance: Well-Nourished - sitting up, conversing easily Vital Signs: Initial Vital Signs Temp 99 F 11/30/18 13:07 Pulse 76 11/30/18 13:07 Resp 18 11/30/18 13:07 BP 125/72 11/30/18 13:07 Pulse Ox 100 11/30/18 13:07 Vital Signs Reviewed: Yes Eye Exam: Normal ENT: Positive: Pharynx normal, Other - R EAC + redness, inflammation. TM red, inflamed, slight bulge. As visible, intact. L TM intact - + dull, rtx'd. + scar. EAC ok. Neck exam: Normal Neck: Positive: Supple, Nontender, No Lymphadenopathy Respiratory Exam: Normal - RR normal, no tachypnea, no dyspnea. Cardiovascular Exam: Normal - HR normal, nondiaphoretic Abdominal Exam: Normal - sitting up, no c/os Musculoskeletal Exam: Normal - moves x 4 ext's. gait steady Neurological Exam: Normal - grossly nonfocal (except as expected R ear pain) Psychological Exam: Normal - conversing easily and appropriately Skin Exam: Normal - no visible or reported rash nondiaphoretic Course/Dx - Course Course Of Treatment: S/sx cw otiitis ext and otitis med. D/w pt. TM appears intact, but with PE tube hx in the setting of TM not fully visilble, recommend opthalmic solution re EAC if possible. Reviewed suggestions (decong) for airplane travel, but despite decong, pain etc could still happen. Reviewed abx / abx precautions. ISTOP ref # [id number] - Diagnoses Provider Diagnosis: Otitis externa, Otitis media Discharge - Sign-Out/Discharge Documenting (check all that apply): Patient Departure All imaging exams completed and their final reports reviewed: No Studies - Discharge Plan Condition: Stable Disposition: HOME Prescriptions: Acetaminop/Codeine 30 MG TAB* [Tylenol/Codeine 30 MG TAB*] 1 - 2 tab PO Q6H PRN #16 tab MDD 8 PRN Reason: Pain - Moderate Ciprofloxacin 0.3% OPTH.ELLA* [Cipro 0.3% Opth*] 2 drop RIGHT EAR Q6H #1 btl Ciprofloxacin TAB* [Cipro 500 MG TAB*] 500 mg PO BID #20 tab Patient Education Materials: Otitis Externa (ED), Ear Infection (ED) Referrals: Sin Alejandre MD [Primary Care Provider] - Additional Instructions: Hydrate. Avoid prolonged exposure to the sun. Seek medical attention for worse or new problems. Afrin nasal spray (per package instructions), prior to flights and prior to descent of long airplane flight. Antihistamine +/- decongestant as needed. Doxycycline holiday during course of ciprofloxacin. - Billing Disposition and Condition Condition: STABLE Disposition: Home
== END 2018-11-30 14:10 | disposition home or self-care (01) ==
LOC: UCEAST 12:49
DX: H60.91 Unspecified otitis externa, right ear (principal); H66.91 Otitis media, unspecified, right ear
CPT/HCPCS: 99212; G0463